=== PATIENT | male | born 1970 | race Caucasian/White ===

== ENCOUNTER 2024-02-07 12:44 | Day surgery (SDC) | payer OTHER ==
[~2024-02-07] VITALS: Ht 180.3 cm; Wt 109.3 kg
[~2024-02-07 12:44] MED LIST: DAILY VALUE1 EACH PO; IBLOOD GLUCOSE TEST STRIP 1 EA TEST VI PRN; LACTATED RINGER'S 1,000 ML IV SCH; LIDOCAINE HCL 1% 5 ML SDV INJ ONE; MIDAZOLAM HCL 5 MG/5 ML VIAL IV PRN; XYZAL5 MG PO; fentaNYL citrate 100 MCG/2 ML VIAL IV PRN
[2024-02-07 13:15] VITALS: BP 118/62
--- NOTE | 2024-02-07 13:47 | NUR ---
1347 INFORMED PT OF EXTENDED WAIT TIME DUE TO EMERGENT SURGERY THAT WAS ADDED INTO SCHEDULE. PT AND SEEM UNDERSTANDING ABOUT THIS. CALL LIGHT WITHIN REACH, PERSONAL ITEMS WITHIN REACH, BED LOW AND LOCKED, PT AT BEDSIDE.
--- NOTE | 2024-02-07 14:40 | NUR ---
1440 checked in with pt to see how they were doing. informed pt of extended wait time ahead of them. pt and seem understanding to the wait time. pt has call light within reach, pt has personal items within reach, at bed side.
[2024-02-07 15:03] VITALS: BP 124/74
--- NOTE | 2024-02-07 15:04 | NUR ---
1304 PT VITALS TAKEN. IV ASSESSED. PT 0/10 PAIN. PT COMFORTABLE IN BED. CALL LIGHT WITHIN REACH, PERSONAL ITEMS WITHIN REACH. AT BEDSIDE. UPDATED PT ON WAIT TIME THAT THERE ARE TWO CASES AHEAD OF HIM NOW. PT UNDERSTANDING TO WAIT TIME.
[2024-02-07 15:56] VITALS: BP 136/74
--- NOTE | 2024-02-07 15:57 | NUR ---
1557 PT UPDATED ON WAIT TIME. VITALS TAKEN. IV ASSESSED. PT REPORTS 0/10 PAIN. PT IN BED LOW AND LOCKED, CALL LIGHT WITHIN REACH AND AT BEDSIDE.
[2024-02-07] MEDS ORDERED: fentaNYL citrate 100 MCG/2 ML VIAL ONE (17:05)
[2024-02-07] MEDS ORDERED: MIDAZOLAM HCL 5 MG/5 ML VIAL ONE (17:05)
--- NOTE | 2024-02-07 17:22 | NUR ---
1722 SPOKE WITH PT AND AND UPDATED ON WAIT TIME. PT AND UNDERSTANDING AND AGREEABLE. PT HAS CALL LIGHT WITHIN REACH, PERSONAL ITEMS WITHIN REACH AND AT BEDSIDE.
--- NOTE | 2024-02-07 18:19 | NUR ---
02/07/24 1819 Alfonso,[place] [id number]-PATIENT ARRIVES TO PACU AWAKE AND ALERT, TALKING TO STAFF. PATIENT DENIES N/V. PATIENT ENCOURAGED TO PASS GAS NEEDED. VSS.
[2024-02-07 18:54] VITALS: BP 131/92
--- NOTE | 2024-02-10 11:16 | PATH ---
[facility] [address] [facility] [place], [place] [address] Signed SPECIMEN(S): A SIGMOID POLYP SPECIMEN SOURCE: A. SIGMOID POLYP FINAL PATHOLOGIC DIAGNOSIS: Colon, sigmoid, polypectomy: - Hyperplastic polyp BRP MICROSCOPIC EXAMINATION: Histologic sections of all submitted blocks are examined by light microscopy. These findings, together with the gross examination, support the pathologic diagnosis. GROSS DESCRIPTION: The specimen, labeled and designated "Segal, " and designated on the requisition "colon, sigmoid polyp," is received in formalin and consists of three fragments of soft olivas tissue that are up to 0.7 cm in greatest dimension. Entirely submitted in (A1). TW (under the direct supervision of a pathologist) The Gross Description was prepared using a voice recognition system. The report was reviewed for accuracy; however, sound-alike word errors, addition and/or deletions may occur. If there is any question about this report, please contact Client Services. ADDITIONAL NOTES: Immunohistochemical and/or in situ hybridization studies if performed in this case included appropriate positive controls that reacted as expected. This test was developed and its performance characteristics determined by [facility]. It has not been cleared or approved by the U.S. Food and Drug Administration. The FDA has determined that such clearance or approval is not necessary. This test is used for clinical purposes. It should not be regarded as investigational or for research. [facility] is certified under the Clinical Laboratory Improvement Amendments of 1988 (CLIA) as qualified to perform high complexity clinical laboratory testing. PERFORMING LABORATORY: Technical component was performed by [email or web address], Camilo Diaz, PATIENT NAME: LEOBARDO SEGAL PATHOLOGY DATE OF : 74 REPORT #: [id number] PHYSICIAN: TORRES ANDERSON PCP: Madan Carl DO REPORT IS CONFIDENTIAL AND NOT TO BE RELEASED WITHOUT AUTHORIZATION [address] [address] [place] [address] (CLIA# [id number]). Professional interpretation was performed by [facility] [address] [id number] Diagnostician: Dominic Curtis MD Pathologist Electronically Signed 02/10/2024 Copies: ~ PATIENT NAME: LEOBARDO SEGAL PATHOLOGY DATE OF : 74 REPORT #: [id number] PHYSICIAN: TORRES ANDERSON PCP: Madan Carl DO REPORT IS CONFIDENTIAL AND NOT TO BE RELEASED WITHOUT AUTHORIZATION
--- NOTE | 2024-02-11 09:58 | OR ---
[facility] [address] [place], [place] [address] Signed DATE OF OPERATION: 02/07/2024 SURGEON: Wilfredo Chery MD PREOPERATIVE DIAGNOSES: 1. Colon screening. 2. Distant history of diverticulitis. POSTOPERATIVE DIAGNOSES: 1. Sigmoid diverticulosis. 2. Small polyp of sigmoid. DESCRIPTION OF PROCEDURE: Total colonoscopy to cecum with cold morcellation polypectomy x1. ANESTHESIA: Intravenous sedation, fentanyl 100 mcg and Versed 10 mg. INDICATIONS: This 53-year-old white man is a patient Dr. Barry of [place], [place]. The patient is said to have episodic diverticulitis having an attack annually actually. He has no particular problems recently. No bleeding, diarrhea, constipation and no family history of colon cancer that he is aware of. He is admitted at this time to undergo colonoscopy. He last had a colonoscopy a number of years ago in the [facility]. The risk of bleeding, infection, perforation, and other unforeseen complications related to colonoscopy were reviewed with him. He understands and wished to proceed. FINDINGS: The prep was quite good. Complete colonoscopy was undertaken of the cecum full intubation of the cecum was noted. The appendiceal orifice and ileocecal valve were normal. He had scattered diverticula of the sigmoid colon, but there were not extensive. There was one small polyp of the sigmoid, which was excised. It may be an inflammatory polyp. There were no other findings of concern. DESCRIPTION OF PROCEDURE: The patient was brought to the endoscopy suite and placed in lateral decubitus position given intravenous sedation a point of slurred speech and nystagmus. Digital rectal examination was normal. Olympus video colonoscope was passed in the rectum and manipulated throughout the colon Electronically Signed By: WILFREDO CHERY MD 02/11/24 0958 PATIENT NAME: LEOBARDO ADHIKARI OPERATIVE REPORT DATE OF : 74 REPORT #: [id number] PHYSICIAN: WILFREDO CHERY MD PCP: Madan Carl DO REPORT IS CONFIDENTIAL AND NOT TO BE RELEASED WITHOUT AUTHORIZATION [facility] [address] [place], [place] [address] Signed noting diverticular change of the sigmoid. The scope was ultimately advanced to the cecum. The ileocecal valve and appendiceal orifice were normal. Scope was withdrawn from that point. Examination throughout showed no sign of abnormality until the sigmoid where a small apparent inflammatory polyp was noted. This was excised with cold morcellation technique. Diverticula were also noted. Once again, the scope was withdrawn, removed after retroflexed view showed no other findings of concern. He is taken to the recovery room in good condition. CONCLUDING DIAGNOSES: 1. Small polyp, possibly inflammatory. 2. Diverticulosis. PLAN: Recommend repeat colonoscopy in 5 years based on polyps, sooner if symptoms should develop. We would recommend a high-fiber diet as well. MD ANUP Wisdom/CURTIS /[id number] cc: Dr. Asha Greco [place] Copies: ~ Electronically Signed By: WILFREDO CHERY MD 02/11/24 0958 PATIENT NAME: LEOBARDO ADHIKARI OPERATIVE REPORT DATE OF : 74 REPORT #: [id number] PHYSICIAN: WILFREDO CHERY MD PCP: Madan Carl DO REPORT IS CONFIDENTIAL AND NOT TO BE RELEASED WITHOUT AUTHORIZATION
== END 2024-02-07 19:00 | disposition home or self-care (01) ==
LOC: OPS 12:44 → DS 12:44 → OPS 14:00 → DS 14:00 → OPS 19:00
PROVIDERS: ATTEND Surgery
PROC: 0DBN8ZX Excision of Sigmoid Colon, Via Natural or Artificial Opening Endoscopic, Diagnostic (ICD-10-PCS; principal; 2024-02-07 14:00)
DX: Z12.11 Encounter for screening for malignant neoplasm of colon (principal); K57.30 Diverticulosis of large intestine without perforation or abscess without bleeding; K63.5 Polyp of colon
CPT/HCPCS: 99153; G0500; J2250; J3010; J7121